=== PATIENT | male | born 1975 | race Caucasian/White ===

== ENCOUNTER 2023-06-25 00:13 | Day surgery (SDC) | payer OTHER, SELFPAY ==
[2023-06-18 14:19] VITALS: BMI 38.8
--- NOTE | 2023-06-23 09:11 | PM.HPGS ---
History of Present Illness History of Present Illness Consent: Risks, benefits, and alternatives have been discussed and questions answered. Patient agrees to proceed with procedure. Chief complaint: neoplasm screening Narrative: Rick Steel is a 48 year old male Referred for colon cancer screening. this is his 1st colonoscopy. Review of Systems Review of Systems: All systems reviewed & are unremarkable except as noted in HPI and below PMFSH Social History Social History Smoking status: Never smoker Alcohol intake: current Alcohol use details: rare social Substance use: never Substance use type: does not use Living arrangements: with family Spiritual care concerns: No Meds Home Medications and Allergies Home Medications Medication Instructions Recorded Confirmed Type atorvastatin 20 mg tablet 20 mg PO DAILY 06/18/23 06/18/23 History dulaglutide 3 mg/0.5 mL 3 mg subcut WE 06/18/23 06/18/23 History subcutaneous pen injector (Trulicity) lisinopril 10 mg tablet 10 mg PO DAILY 06/18/23 06/18/23 History metformin 500 mg tablet 500 mg PO DAILY 06/18/23 06/18/23 History Allergies Allergy/AdvReac Type Severity Reaction Status Date / Time No Known Allergies Allergy Verified 06/25/23 07:08 Exam Const: General: alert Orientation/consciousness: patient oriented x3 Resp: Auscultation: clear to auscultation bilaterally Cardio: Rhythm: regular rhythm GI: GI Palp: Yes Soft to palpation and No Tenderness to palpation present (GI) Neuro: General: patient oriented x3 Assessment and Plan Assessment and plan (1) Colon cancer screening: Code(s): Z12.11 - Encounter for screening for malignant neoplasm of colon Status: Acute Assessment and Plan: Colonoscopy with possible biopsy or polypectomy or cautery or injection of substances.
[2023-06-25] MEDS: LACTATED RINGERS 1,000 ML 150 ML IV CONT (07:07)
[2023-06-25 07:08] VITALS: BP 125/92; PULSE 69; RESP 18; TEMP 36.1; O2SAT 100
[2023-06-25 07:08] LABS: Glucose Point of Care 103 mg/dl (65-105)
--- NOTE | 2023-06-25 07:16 | P.PNAN_ITS ---
Anes - Initial Pre Proc Eval Procedure: Operation Date: 06/25/23 08:00 Proposed Procedures p Screening Colonoscopy - Khanh Logan MD Date/Time: 06/25/23 07:16 Surgeon: Khanh Logan MD Pre Op Diagnosis: neoplasm screening Patient Data Age: 48 Gender: M Height: 1.83 m Weight: 124.8 kg Last Vital Signs Temp 97 F L 06/25/23 07:08 Pulse 69 06/25/23 07:08 Resp 18 06/25/23 07:08 BP 125/92 H 06/25/23 07:08 Pulse Ox 100 06/25/23 07:08 O2 Del Method Room Air 06/25/23 07:08 Allergies Allergy/AdvReac Type Severity Reaction Status Date / Time No Known Allergies Allergy Verified 06/25/23 07:08 Home Medications Medication Instructions Recorded Confirmed Type atorvastatin 20 mg tablet 20 mg PO DAILY 06/18/23 06/18/23 History dulaglutide 3 mg/0.5 mL 3 mg subcut WE 06/18/23 06/18/23 History subcutaneous pen injector (Trulicity) lisinopril 10 mg tablet 10 mg PO DAILY 06/18/23 06/18/23 History metformin 500 mg tablet 500 mg PO DAILY 06/18/23 06/18/23 History Laboratory Tests 06/25/23 07:04 POC Capillary Glucose 103 mg/dl (65-105) Patient hx anesthesia problems: none Family hx anesthesia problems: none Results Review: All pre-operative results and documents have been reviewed as part of the pre- operative evaluation. PMFSH Social History Social History Smoking status: Never smoker Alcohol intake: current Alcohol use details: rare social Substance use: never Substance use type: does not use Living arrangements: with family Spiritual care concerns: No Anes - Eval Final PreProcedure Day of Procedure 06/25/23 07:16 Patient weight: obese Heart: regular rate and rhythm Lungs: clear to auscultation Airway: Mallampati scale class II Neurological: alert and oriented Last oral intake: >/= 8 hours ASA classification: III Emergent: no Anesthetic plan: proceed Anesthesia type and monitoring: general GIVS and standard monitoring Results Review: All pre-operative results and documents have been reviewed as part of the pre-operative evaluation. Informed Consent: The patient's anesthetic plan and its attendant risks and benefits were discussed with the patient/family/POA. Questions were solicited and answers provided to the satisfaction of the patient/family/POA.
[2023-06-25 07:49] VITALS: BP 92/50; PULSE 66; RESP 19; O2SAT 98
[2023-06-25 07:59] VITALS: BP 109/73; PULSE 65; RESP 22; O2SAT 96
[2023-06-25 08:09] VITALS: BP 117/83; PULSE 60; RESP 14; O2SAT 99
== END 2023-06-25 08:20 | disposition home or self-care (01) ==
PROVIDERS: PCP Internal Medicine; Visit Provider Internal Medicine Gastroenterology
PROC: 0DJD8ZZ Inspection of Lower Intestinal Tract, Via Natural or Artificial Opening Endoscopic (ICD-10-PCS; CPT 45378; principal; 2023-06-25 08:00)
DX: Z12.11 Encounter for screening for malignant neoplasm of colon (principal); E66.9 Obesity, unspecified; Z68.37 Body mass index [BMI] 37.0-37.9, adult; Z79.84 Long term (current) use of oral hypoglycemic drugs
CPT/HCPCS: 45378; 82948; J2001; J2371; J2704; J7120